=== PATIENT | female | born 1985 | race American Indian/Alaskan Native ===

== ENCOUNTER 2017-08-21 07:15 | Inpatient (IN) | payer OTHER ==
[2017-08-21] MEDS ORDERED: Ondansetron 4 MG/2 ML SDV IVPUSH PRN (08:30)
[2017-08-21] MEDS ORDERED: Sodium Chloride 0.9% 10 ML Syringe FLUSH PRN (08:30)
[2017-08-21] MEDS ORDERED: Oxytocin/Lactated Ringers 10 UNIT/1,000 ML BAG IV SCH ×2 (08:30→09:30)
--- NOTE | 2017-08-21 09:07 | PCM.LDHP ---
L&D History of Present Illness - General Date of Service: 08/21/17 Admit Problem/Dx: Admission Diagnosis/Problem Admission Diagnosis/Problem Source of Information: Patient History Limitations: Reports: No Limitations - History of Present Illness Introduction:: 32 year old at 39 weeks here for elective induction of labor PNC complicated by drug use and incarceration - Related Data Allergies/Adverse Reactions: Allergies Allergy/AdvReac Type Severity Reaction Status Date / Time garlic Allergy Hives Verified 08/20/17 04:27 Sulfa (Sulfonamide Allergy Hives Verified 08/20/17 04:27 Antibiotics) Past Medical History - Past Health History Medical/Surgical History: Denies Medical/Surgical History H&P Review of Systems - Review of Systems: Review Of Systems: See Below General: Reports: No Symptoms HEENT: Reports: No Symptoms Pulmonary: Reports: No Symptoms Cardiovascular: Reports: No Symptoms Gastrointestinal: Reports: No Symptoms Genitourinary: Reports: No Symptoms Musculoskeletal: Reports: No Symptoms Skin: Reports: No Symptoms Psychiatric: Reports: No Symptoms Neurological: Reports: No Symptoms Hematologic/Lymphatic: Reports: No Symptoms Immunologic: Reports: No Symptoms L&D Exam - Exam Exam: See Below - Vital Signs Weight: 90.991 kg - OB Specific Fundal Height In cm: 41 Contraction Intensity: Mild to Moderate Movement: Active Heart Tones: Present - Gotti Score Gotti Score Cervix Position: Posterior Gotti Score Consistency: Soft Gotti Score Effacement: 51-70% Gotti Score Dilation: 3-4 cm Gotti Score 's Station: -3 Gotti Score Total: 6 - Exam General: Alert, Oriented HEENT: PERRLA, Conjunctiva Clear, EACs Clear, EOMI, Hearing Intact, Mucosa Moist & [place], Nares Patent, Normal Nasal Septum, Posterior Pharynx Clear, TMs Clear Neck: Supple, Trachea Midline Lungs: Clear to Auscultation, Normal Respiratory Effort Cardiovascular: Regular Rate, Regular Rhythm GI/Abdominal Exam: Normal Bowel Sounds, Soft, Non-Tender, No Organomegaly, No Distention, No Abnormal Bruit, No Mass, Pelvis Stable Rectal Exam: Normal Exam, Normal Rectal Tone Back Exam: Normal Inspection, Full Range of Motion Extremities: Normal Inspection, Normal Range of Motion, Non-Tender, No Pedal Edema, Normal Capillary Refill Skin: Warm, Dry, Intact Neurological: Cranial Nerves Intact, Reflexes Equal Bilateral Psychiatric: Alert, Normal Affect, Normal Mood - Patient Data Lab Results Last 24 hrs: Laboratory Results - last 24 hr 08/21/17 Range/Units 08:43 WBC 6.57 (3.98-10.04) K/mm3 RBC 4.34 (3.98-5.22) M/mm3 Hgb 11.6 (11.2-15.7) gm/L Hct 36.1 (34.1-44.9) % MCV 83.2 (79.4-94.8) fl MCH 26.7 (25.6-32.2) pg MCHC 32.1 L (32.2-35.5) g/dl RDW Std Deviation 49.1 H (36.4-46.3) fL Plt Count 128 L (182-369) K/mm3 MPV 12.3 (9.4-12.3) fl Result Diagrams: 08/21/17 08:43 Problem List Initiated/Reviewed/Updated: Yes Orders Last 24hrs: Active Orders 24 hr Category Date Time Status Activity as Tolerated [RC] PFP Care 08/21/17 08:30 Active Communication Order [RC] ASDIRECTED Care 08/21/17 08:30 Active Heart Tones [RC] ASDIRECTED Care 08/21/17 08:30 Active Notify Provider [RC] PFP Care 08/21/17 08:30 Active Notify Provider [RC] PRN Care 08/21/17 08:30 Active Peripheral IV Care [RC] . DIRECTED Care 08/21/17 08:30 Active Urinary Catheter Assessment [RC] ASDIRECTED Care 08/21/17 08:30 Active Vital Signs [RC] PER UNIT ROUTINE Care 08/21/17 08:30 Active Regular Diet [DIET] Diet 08/21/17 Breakfast Active Lactated Ringers [Ringers, Lactated] 1,000 ml Med 08/21/17 08:30 Active IV ASDIRECTED Nalbuphine [Nubain] Med 08/21/17 08:30 Active 10 mg IVPUSH Q2H PRN Ondansetron [Zofran] Med 08/21/17 08:30 Active 4 mg IVPUSH Q4H PRN Oxytocin/Lactated Ringers [Pitocin in LR 10 Units/1,000 Med 08/21/17 08:30 Active ML] 10 unit in 1,000 ml IV .CONTINUOUS Sodium Chloride 0.9% [Saline Flush] Med 08/21/17 08:30 Active 10 ml FLUSH ASDIRECTED PRN Electronic Heart Tones Ext w TOCO [WOMSER] Ot 08/21/17 08:30 Ordered Routine Electronic Heart Tones Internal [WOMSER] Per Unit Ot 08/21/17 08:30 Ordered Routine Peripheral IV Insertion Adult [OM.PC] Routine Ot 08/21/17 08:30 Ordered Saline Lock Insert [OM.PC] Routine Ot 08/21/17 08:31 Ordered Resuscitation Status Routine Resus Stat 08/21/17 08:30 Ordered Medication Orders Lactated Ringer's (Ringers, Lactated) 1,000 mls @ 100 mls/hr IV ASDIRECTED JUANY Oxytocin/Lactated Ringer's (Pitocin In Lr 10 Units/1,000 Ml) 10 unit in 1,000 mls @ 500 mls/hr IV .CONTINUOUS JUANY Nalbuphine HCl (Nubain) 10 mg IVPUSH Q2H PRN PRN Reason: Pain (moderate 4-6) Ondansetron HCl (Zofran) 4 mg IVPUSH Q4H PRN PRN Reason: Nausea/Vomiting Sodium Chloride (Saline Flush) 10 ml FLUSH ASDIRECTED PRN PRN Reason: Keep Vein Open Assessment/Plan Comment:: AR"OM clear fluid. CBC, Type and screen, drug screen.
[2017-08-21] MEDS: Lactated Ringers 1,000 ML IV SCH ×2 (10:20→12:58)
[2017-08-21] MEDS: Nalbuphine 20 MG/ML 1 ML Syringe IVPUSH PRN ×2 (10:36→12:54)
--- NOTE | 2017-08-21 13:55 | PCM.SN ---
- Free Text/Narrative Note: Stage I - patient presented for induction of labor. AROM clear fluid. Nubain x 1 for pain. Progressed nicely to complete with overall reassuring heart tones. Stage II - of viable female weight 7#14, APGARS 8/9, at 1329. Head delivered in a controlled manner over an intact perineum. Body and shoulders followed without difficulty. Positive cry. Cord clamped and cut. Baby to maternal abdomen. Cord blood and segment sent. Stage III - Placenta delivered intact. No laceration. EBL 250.
[2017-08-21] MEDS ORDERED: Witch Hazel Medicated Pads 100/Jar TOP PRN (14:55)
[2017-08-21] MEDS ORDERED: Docusate Sodium 100 MG Cap PO PRN (14:55)
[2017-08-21] MEDS ORDERED: Lanolin 100% Cream 7 GM Tube TOP PRN (14:55)
[2017-08-21] MEDS ORDERED: Benzocaine/Menthol 20%-0.5% Spray 56 GM Canister TOP PRN (14:55)
[2017-08-21] MEDS: Ibuprofen 600 MG Tab PO PRN ×2 (15:09→21:26)
--- NOTE | 2017-08-22 01:03 | PCM.PNPP ---
- General Info Date of Service: 08/22/17 Functional Status: Reports: Pain Controlled, Tolerating Diet, Ambulating, Urinating - Review of Systems General: Reports: No Symptoms Pulmonary: Reports: No Symptoms Cardiovascular: Reports: No Symptoms Gastrointestinal: Reports: Abdominal Pain (Cramping ) Genitourinary: Reports: No Symptoms Musculoskeletal: Reports: No Symptoms Neurological: Reports: No Symptoms - Patient Data Vital Signs - Most Recent: Last Vital Signs Temp 36.6 C 08/21/17 19:55 Pulse 59 L 08/21/17 19:55 Resp 16 08/21/17 19:55 BP 126/76 08/21/17 19:55 Pulse Ox 99 08/21/17 19:55 Weight - Most Recent: 90.991 kg I&O - Last 24 Hours: Intake & Output 08/21/17 08/21/17 08/22/17 14:59 22:59 06:59 Intake Total 360 2440 Balance 360 2440 Lab Results - Last 24 Hours: Laboratory Results - last 24 hr 08/21/17 08/21/17 Range/Units 08:43 09:00 WBC 6.57 (3.98-10.04) K/mm3 RBC 4.34 (3.98-5.22) M/mm3 Hgb 11.6 (11.2-15.7) gm/L Hct 36.1 (34.1-44.9) % MCV 83.2 (79.4-94.8) fl MCH 26.7 (25.6-32.2) pg MCHC 32.1 L (32.2-35.5) g/dl RDW Std Deviation 49.1 H (36.4-46.3) fL Plt Count 128 L (182-369) K/mm3 MPV 12.3 (9.4-12.3) fl Urine Opiates Screen Negative (NEGATIVE) Ur Buprenorphine Scrn Negative (NEGATIVE) Ur Oxycodone Screen Negative (NEGATIVE) Urine Methadone Screen Negative (NEGATIVE) Ur Propoxyphene Screen Negative (NEGATIVE) Ur Barbiturates Screen Negative (NEGATIVE) Ur Tricyclics Screen Negative (NEGATIVE) Ur Phencyclidine Scrn Negative (NEGATIVE) Ur Amphetamine Screen Negative (NEGATIVE) U Methamphetamines Scrn Negative (NEGATIVE) U Benzodiazepines Scrn Negative (NEGATIVE) U Cocaine Metab Screen Negative (NEGATIVE) U Marijuana (THC) Screen Negative (NEGATIVE) Med Orders - Current: Current Medications Benzocaine/Menthol (Dermoplast Pain Relief [place]) 0 gm TOP ASDIRECTED PRN PRN Reason: Perineal Comfort Measure Last Admin: 08/21/17 17:24 Dose: 1 spray Docusate Sodium (Colace) 100 mg PO BID PRN PRN Reason: Constipation Emollient Ointment (Lansinoh Hpa) 0 gm TOP ASDIRECTED PRN PRN Reason: Sore Nipples Ibuprofen (Motrin) 600 mg PO Q6H PRN PRN Reason: Mild pain or fever Last Admin: 08/21/17 21:26 Dose: 600 mg Witch Zeinab (Tucks) 1 pad TOP ASDIRECTED PRN PRN Reason: Hemorrhoid pain Discontinued Medications Lactated Ringer's (Ringers, Lactated) 1,000 mls @ 100 mls/hr IV ASDIRECTED JUANY Last Admin: 08/21/17 12:58 Dose: 100 mls/hr Oxytocin/Lactated Ringer's (Pitocin In Lr 10 Units/1,000 Ml) 10 unit in 1,000 mls @ 500 mls/hr IV .CONTINUOUS JUANY Oxytocin/Lactated Ringer's (Pitocin In Lr 10 Units/1,000 Ml) 10 unit in 1,000 mls @ 12 mls/hr IV TITRATE JUANY; Protocol Last Titration: 08/21/17 13:00 Dose: 8 munits/min, 48 mls/hr Nalbuphine HCl (Nubain) 10 mg IVPUSH Q2H PRN PRN Reason: Pain (moderate 4-6) Last Admin: 08/21/17 12:54 Dose: 10 mg Ondansetron HCl (Zofran) 4 mg IVPUSH Q4H PRN PRN Reason: Nausea/Vomiting Sodium Chloride (Saline Flush) 10 ml FLUSH ASDIRECTED PRN PRN Reason: Keep Vein Open - Interaction Disposition, : in Room with Family Interaction: Holding Infant Feeding: Bottle Fed Support Person: Other (see below) - Recovery Exam Fundal Tone: Firm Fundal Level: At Umbilicus Fundal Placement: Midline Lochia Amount: Small Lochia Color: Rubra/Red Perineum Description: Intact, Minimal Bruising/Swelling Bladder Status: Voiding - Exam General: Alert, Oriented, Cooperative GI/Abdominal Exam: Soft, Non-Tender Extremities: Normal Inspection Skin: Warm, Dry, Intact - Problem List & Annotations (1) Status post vaginal delivery SNOMED Code(s): 183009677, [id number], [id number] Code(s): [id number] - Status: Acute Current Visit: Yes - Problem List Review Problem List Initiated/Reviewed/Updated: Yes - Assessment Assessment:: PPD#1 from - Plan Plan:: * Routine cares * Bottle feeding * Discharge to correctional facility today
--- NOTE | 2017-08-22 01:05 | PCM.DCSUM1 ---
Discharge Summary - Discharge Data Discharge Date: 08/22/17 Discharge Disposition: Home, Self-Care 01 Condition: Good - Patient Summary/Data Complications: None Consults: None Recommended Follow-up Testing/Procedures: Follow up in 4-6 weeks for check Hospital Course: 32 y/o admitted for planned elective IOL. This was uncomplicated. She progressed well and underwent an uncomplicated . See delivery note. she did well and was discharged back to her correctional facility on PPD#1 - Patient Instructions Diet: Regular Diet as Tolerated Activity: As Tolerated Activity, Other: Pelvic rest for 6 weeks Driving: May Drive Today Showering/Bathing: May Shower Showering/Bathing, Other: May Bathe Notify Provider of: Fever, Increased Pain, Swelling and Redness, Drainage, Nausea and/or Vomiting - Discharge Plan Home Medications: Home Meds Docusate Sodium [Colace] 100 mg PO BID PRN cap 08/22/17 [Rx] Ibuprofen [Motrin] 600 mg PO Q6H PRN tablet 08/22/17 [Rx] Liliam Arriola [Tucks] 1 pad TOP ASDIRECTED PRN pad 08/22/17 [Rx] Referrals: Tere Núñez MD [Primary Care Provider] - (2 weeks - incision check 6 weeks - check ) - Discharge Summary/Plan Comment DC Time >30 min.: No - Patient Data Vitals - Most Recent: Last Vital Signs Temp 36.6 C 08/21/17 19:55 Pulse 59 L 08/21/17 19:55 Resp 16 08/21/17 19:55 BP 126/76 08/21/17 19:55 Pulse Ox 99 08/21/17 19:55 Weight - Most Recent: 90.991 kg I&O - Last 24 hours: Intake & Output 08/21/17 08/21/17 08/22/17 14:59 22:59 06:59 Intake Total 360 2440 Balance 360 2440 Lab Results - Last 24 hrs: Laboratory Results - last 24 hr 08/21/17 08/21/17 Range/Units 08:43 09:00 WBC 6.57 (3.98-10.04) K/mm3 RBC 4.34 (3.98-5.22) M/mm3 Hgb 11.6 (11.2-15.7) gm/L Hct 36.1 (34.1-44.9) % MCV 83.2 (79.4-94.8) fl MCH 26.7 (25.6-32.2) pg MCHC 32.1 L (32.2-35.5) g/dl RDW Std Deviation 49.1 H (36.4-46.3) fL Plt Count 128 L (182-369) K/mm3 MPV 12.3 (9.4-12.3) fl Urine Opiates Screen Negative (NEGATIVE) Ur Buprenorphine Scrn Negative (NEGATIVE) Ur Oxycodone Screen Negative (NEGATIVE) Urine Methadone Screen Negative (NEGATIVE) Ur Propoxyphene Screen Negative (NEGATIVE) Ur Barbiturates Screen Negative (NEGATIVE) Ur Tricyclics Screen Negative (NEGATIVE) Ur Phencyclidine Scrn Negative (NEGATIVE) Ur Amphetamine Screen Negative (NEGATIVE) U Methamphetamines Scrn Negative (NEGATIVE) U Benzodiazepines Scrn Negative (NEGATIVE) U Cocaine Metab Screen Negative (NEGATIVE) U Marijuana (THC) Screen Negative (NEGATIVE) Med Orders - Current: Current Medications Benzocaine/Menthol (Dermoplast Pain Relief [place]) 0 gm TOP ASDIRECTED PRN PRN Reason: Perineal Comfort Measure Last Admin: 08/21/17 17:24 Dose: 1 spray Docusate Sodium (Colace) 100 mg PO BID PRN PRN Reason: Constipation Emollient Ointment (Lansinoh Hpa) 0 gm TOP ASDIRECTED PRN PRN Reason: Sore Nipples Ibuprofen (Motrin) 600 mg PO Q6H PRN PRN Reason: Mild pain or fever Last Admin: 08/21/17 21:26 Dose: 600 mg Witch Zeinab (Tucks) 1 pad TOP ASDIRECTED PRN PRN Reason: Hemorrhoid pain Discontinued Medications Lactated Ringer's (Ringers, Lactated) 1,000 mls @ 100 mls/hr IV ASDIRECTED JUANY Last Admin: 08/21/17 12:58 Dose: 100 mls/hr Oxytocin/Lactated Ringer's (Pitocin In Lr 10 Units/1,000 Ml) 10 unit in 1,000 mls @ 500 mls/hr IV .CONTINUOUS JUANY Oxytocin/Lactated Ringer's (Pitocin In Lr 10 Units/1,000 Ml) 10 unit in 1,000 mls @ 12 mls/hr IV TITRATE JUANY; Protocol Last Titration: 08/21/17 13:00 Dose: 8 munits/min, 48 mls/hr Nalbuphine HCl (Nubain) 10 mg IVPUSH Q2H PRN PRN Reason: Pain (moderate 4-6) Last Admin: 08/21/17 12:54 Dose: 10 mg Ondansetron HCl (Zofran) 4 mg IVPUSH Q4H PRN PRN Reason: Nausea/Vomiting Sodium Chloride (Saline Flush) 10 ml FLUSH ASDIRECTED PRN PRN Reason: Keep Vein Open
[2017-08-22] MEDS: Ibuprofen 600 MG Tab PO PRN (04:13)
== END 2017-08-22 12:23 | disposition home or self-care (01) | DRG 775 ==
LOC: EEVIPCON 07:15 → JD.OB 07:15 → OBSVTOIN 13:29 → JD.OB 13:30
PROVIDERS: ADMIT Obstetrics & Gynecology; ATTEND Obstetrics & Gynecology
PROC: 10E0XZZ Delivery of Products of Conception, External Approach (ICD-10-PCS; principal; 2017-08-21)
PROC: 10907ZC Drainage of Amniotic Fluid, Therapeutic from Products of Conception, Via Natural or Artificial Opening (ICD-10-PCS; 2017-08-21)
DX: O99.324 Drug use complicating childbirth (principal); Z37.0 Single live birth; F15.90 Other stimulant use, unspecified, uncomplicated; Z3A.39 39 weeks gestation of pregnancy; Z88.2 Allergy status to sulfonamides; Z91.018 Allergy to other foods; Z87.891 Personal history of nicotine dependence; Z86.14 Personal history of Methicillin resistant Staphylococcus aureus infection
CPT/HCPCS: 36415; 59025; 59409; 80306; 85027; A9270-GY; J2300; J2590; J7120